=== PATIENT | female | born 1990 ===

== ENCOUNTER 2020-01-16 15:10 | Emergency (ER) | payer OTHER ==
[2020-01-16] MEDS ORDERED: SILVER SULFADIAZINE 1% 50 GM TOP ONE (16:00)
[2020-01-16] MEDS ORDERED: FENTANYL CITR 100 MCG/2 ML ONE (16:00)
[2020-01-16] MEDS ORDERED: NA CHLORIDE 0.9% 1,000 ML ONE (16:00)
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
[2020-01-16 18:44] VITALS: BP 110/67; TEMP 97.8; O2SAT 99
== END 2020-01-16 18:27 | disposition home or self-care (01) ==
LOC: ER 15:10
DX: O26.899 Other specified pregnancy related conditions, unspecified trimester (principal); Z3A.00 Weeks of gestation of pregnancy not specified; Z88.0 Allergy status to penicillin
CPT/HCPCS: 96361; 96374; 99284; J3010; J7030